=== PATIENT | female | born 1970 | race Caucasian/White ===

== ENCOUNTER 2018-01-04 14:35 | Emergency (ER) | payer OTHER, SELFPAY ==
[2018-01-04] MEDS ORDERED: Dexamethasone 4 mg/ml Vial ONE (16:21)
[2018-01-04] MEDS ORDERED: Ketorolac Tromethamine 30 MG/ML VIAL ONE (16:21)
== END 2018-01-04 14:37 | disposition home or self-care (01) ==
LOC: ERS 14:35
DX: L55.0 Sunburn of first degree (principal)
CPT/HCPCS: 96372; J1100; J1885

== ENCOUNTER 2018-07-13 00:38 | Emergency (ER) | payer BC, SELFPAY ==
--- NOTE | 2018-07-13 08:33 | RAD ---
LEFT LEG 2 VIEWS: Date: 07/13/18 INDICATION: Injury, pain. FINDINGS: No fracture or dislocation. IMPRESSION: No acute osseous abnormality of the left leg. POS: [facility]
--- NOTE | 2018-07-13 08:58 | RAD ---
FOUR VIEWS LEFT KNEE: Date: 07-13-18 History: Fall from standing. Left knee injury after fall. FINDINGS: There is no evidence of a fracture, dislocation, or other osseous abnormality. No joint space narrowi ng is seen. IMPRESSION: No acute osseous abnormality. POS: [facility]
== END 2018-07-13 02:46 | disposition home or self-care (01) ==
LOC: SCSER 00:38
DX: S83.92XA Sprain of unspecified site of left knee, initial encounter (principal); X50.1XXA Overexertion from prolonged static or awkward postures, initial encounter

== ENCOUNTER 2019-02-24 09:43 | Outpatient (CLI) | payer OTHER ==
--- NOTE | 2019-02-24 10:20 | MMO ---
Bilateral MAMMO Bilat Screen [facility]. CLINICAL HISTORY: Patient is 48 years old and is seen for screening. The patient has no family history of breast cancer. The patient has no personal history of cancer. VIEWS: The views performed were: bilateral craniocaudal with tomosynthesis and bilateral mediolateral oblique with tomosynthesis. MAMMOGRAM FINDINGS: There are scattered fibroglandular densities. There are no suspicious masses, suspicious calcifications, or new areas of architectural distortion. IMPRESSION: THERE IS NO MAMMOGRAPHIC EVIDENCE OF MALIGNANCY. A ROUTINE FOLLOW-UP MAMMOGRAM IN 1 YEAR IS RECOMMENDED. THE RESULTS OF THIS EXAM WERE SENT TO THE PATIENT. ACR BI-RADS Category 1 - Negative MAMMOGRAPHY NOTE: 1. A negative mammogram report should not delay a biopsy if a dominant of clinically suspicious mass is present. 2. Approximately 10% to 15% of breast cancers are not detected by mammography. 3. Adenosis and dense breasts may obscure an underlying neoplasm.
== END 2019-02-24 09:44 | disposition home or self-care (01) ==
LOC: BICMAMMO 09:43
PROVIDERS: ATTEND Family Medicine
DX: Z12.31 Encounter for screening mammogram for malignant neoplasm of breast (principal)
CPT/HCPCS: 77063; 77067

== ENCOUNTER 2019-08-06 16:30 | Observation (INO) | payer OTHER ==
--- NOTE | 2019-08-06 17:59 | RAD ---
RIGHT ANKLE TWO VIEWS: 08/06/19 HISTORY: Tripped and fell. Ankle pain. There is an obliquely oriented medial malleolar fracture. Also a posterior malleolar fracture. The ti inez is medially subluxed in position. I do not visualize the fibular fracture. There may be a more pr oximal fibular fracture present. Calcaneal spurs are incidentally noted. IMPRESSION: Obliquely oriented medial malleolar fracture also with a posterior malleolar fracture and medial subl uxation of the tibia in relation to the talus. POS: [facility]
[2019-08-06] MEDS ORDERED: Lidocaine 1% w/Epinephrine 1:100K 20 ML VIAL ONE (18:15)
[2019-08-06] MEDS ORDERED: HYDROmorphone 0.5 MG/0.5 ML SYRINGE ONE (18:20)
[2019-08-06] MEDS ORDERED: Ketorolac Tromethamine 30 MG/ML VIAL ONE (18:58)
--- NOTE | 2019-08-06 19:06 | RAD ---
PORTABLE CHEST: 08/06/19 HISTORY: Fall, preop. Heart size and mediastinum are within normal limits. The lungs are clear of infiltrates. No bony find ings. IMPRESSION: No active intrathoracic disease. POS: [facility]
--- NOTE | 2019-08-06 19:07 | RAD ---
LEFT ANKLE THREE VIEWS: 08/06/19 HISTORY: Ankle pain, status post fall. There are calcaneal spurs present. There is what appears to be an incomplete fracture through the tip of the medial malleolus. Lucency does not extend entirely through the bone but is still suspicious f or a fracture. Clinical correlation as to whether this is the area of patient's pain. IMPRESSION: Findings suggesting a nondisplaced fracture involving the tip of the medial malleolus. POS: [facility]
--- NOTE | 2019-08-06 19:08 | RAD ---
RIGHT ANKLE TWO VIEWS: 08/06/19 HISTORY: Post reduction. Plaster splint is now in place. The alignment of the tibia and talus has been improved since that pre vious exam. Medial malleolar fracture and posterior malleolar fracture is again noted. IMPRESSION: Partial reduction of tibial subluxation. POS: [facility]
[2019-08-06 19:24] LABS: #Lymphocytes 1.3 thou/uL (1.20-3.40); #Monocytes 0.6 thou/uL (0.11-0.59); #Neutrophils 10.1 thou/uL (1.40-6.50); %Basophils 0.3 % (0.0-1.0); %Eosinophils 0.3 % (0.0-10.0); %Neutrophils 83.5 % (42.0-75.0); Mean Corpuscular HGB CONC 32.7 g/dL (32.0-36.0); Mean Corpuscular Volume 88.9 fL (78.0-98.0); Mean Platelet Volume 6.7 fL (7.4-10.4); Platelet Count 324 thou/uL (130-400); RBC Distribution Width 12.1 % (11.5-14.5); Red Blood Cell (RBC) Count 4.48 mill/uL (4.20-5.40); White Blood Cell (WBC) Count 12.1 thou/uL (4.8-10.8)
[2019-08-06 19:47] LABS: ALT (SGPT) 17 U/L (8-55); AST (SGOT) 15 U/L (5-34); Albumin 3.8 g/dL (3.5-5.0); Alkaline Phosphatase 60 U/L (40-110); Anion Gap 12 mmol/L (10-20); BUN (Urea Nitrogen) 9 mg/dL (7.0-18.7); Bilirubin, Total 0.4 mg/dL (0.2-1.2); Calc. Creatinine Clearance 0 mL/min (70-130); Calcium 8.7 mg/dL (7.8-10.44); Carbon Dioxide 23 mmol/L (22-29); Chloride 107 mmol/L (98-107); Estimated GFR-MDRD 66; Globulin 2.6 g/dL (2.4-3.5); Glucose 121 mg/dL (70-105); Potassium 3.9 mmol/L (3.5-5.1); Protein, Total 6.4 g/dL (6.0-8.3); Sodium 138 mmol/L (136-145)
--- NOTE | 2019-08-06 19:50 | HP ---
REQUESTING PHYSICIAN: Dr. Huddleston. ATTENDING SURGEON: Dr. Moralez. CONSULTATIONS: Orthopedics, Dr. Taylor. HISTORY OF PRESENT ILLNESS: The patient is a 49-year-old woman, who was walking down some stairs when she missed the last one and lost her balance and fell, rolling both ankles, mostly her right one. She was unable to bear weight, so 911 was called and EMS brought her to the emergency department, where she underwent evaluation and examination, and was noted to have a right distal tibia fracture/ankle fracture and a high-grade sprain to her left ankle. The patient denied loss of consciousness or any syncopal type events. ALLERGIES: SULFA. CURRENT MEDICATIONS: None. PAST MEDICAL HISTORY: None. PAST SURGICAL HISTORY: Skin graft and tubal ligation. SOCIAL HISTORY: The patient lives at home with her family. She drinks rarely. Denies tobacco or drug use. She is employed as an parking regulation enforcement officer. REVIEW OF SYSTEMS: A 10-point review of systems is negative, except as otherwise stated. PHYSICAL EXAMINATION: VITAL SIGNS: Blood pressure 122/81, respirations 19, oxygen saturation 98% on room air, heart rate is 81, temperature is 98.1. GENERAL: The patient is resting comfortably in bed. She is awake, alert, and oriented x3. Cesia Coma Scale is 15. HEENT. Head is normocephalic and atraumatic. Eyes, extraocular motion intact. PERRLA bilaterally. Ears are atraumatic without discharge. Nose is atraumatic without discharge. Oropharynx is clear. NECK: Nontender. Trachea is midline. No JVD. CHEST: Clear to auscultation with good inspiratory and expiratory effort. HEART: Regular rate and rhythm. ABDOMEN: Soft, flat, nontender with active bowel sounds. PELVIS: Stable. EXTREMITIES: Neurovascularly intact x4. Right lower extremity, the ankle has global swelling and ecchymosis and is neurovascularly intact. The left lower extremity has tenderness to palpation to the medial and lateral aspect of her ankle. There is minimal swelling and no ecchymosis noted and is neurovascularly intact. BACK: By report is atraumatic and nontender. LABORATORY FINDINGS: Pending. RADIOGRAPHIC REPORTS: AP chest x-ray shows no intrathoracic disease. Views of the right ankle show an obliquely oriented medial malleolar fracture, also a posterior malleolar fracture, and medial subluxation of the tibia in relation to the talus. Views of the left ankle, findings suggesting a nondisplaced fracture involving the tip of the medial malleolus. ASSESSMENT/PLAN: 1. Status post ground level fall. 2. Right medial and posterior malleolus fracture with subluxation. 3. Left nondisplaced fracture of the tip of the medial malleolus. 4. Pain secondary to trauma. PLAN: Plan will be to admit the patient to the surgical floor. She will be made n.p.o. after midnight. She will have pain control, pulmonary toilet, gastritis and mechanical VTE prophylaxis. Postoperatively, she will work with physical therapist and occupational therapist and may possibly be able to leave postoperatively once her pain is controlled and she is work with therapy. We will also get a left leg film tonight to ensure that the patient does not have maisonneuve fracture. The case was discussed with Dr. Taylor and he plans to take the patient to the OR tomorrow. The evaluation and examination were discussed with Dr. Moralez prior to this dictation. Job ID: [id number]
--- NOTE | 2019-08-06 19:56 | RAD ---
LEFT TIBIA AND FIBULA TWO VIEWS: 08/06/19 HISTORY: Tib/fib injury. There is subtle lucency again demonstrated to the tip of the medial malleolus, possibly a subtle frac ture. No other abnormalities are noted. IMPRESSION: Subtle area of lucency involving the tip of the medial malleolus, possibly a nondisplaced fracture. C linical correlation is suggested. POS: [facility]
--- NOTE | 2019-08-06 20:46 | CON ---
DATE OF CONSULTATION: CHIEF COMPLAINT: Bilateral ankle pain. HISTORY OF PRESENT ILLNESS: Ms. Benitez is a 49-year-old female, who was walking downstairs when she missed a step and fell. She twisted her ankles. She had a deformity of her right ankle and was unable to bear weight. She was brought to the emergency department. She has been found to have a right bimalleolar ankle fracture with near dislocation. This has been reduced and splinted. She has also been found to have minimally displaced left medial malleolus ankle fracture. Orthopedics was consulted for these injuries. She is being admitted to the General Surgery Trauma Service. ALLERGIES: TO SULFA. PAST MEDICAL HISTORY: She denies active medical problems. PAST SURGICAL HISTORY: Tubal ligation and previous skin graft surgery. SOCIAL HISTORY: The patient denies tobacco, alcohol, or drug use. She lives independently. REVIEW OF SYSTEMS: Negative for 10-point review of systems except for ankle pain as per HPI. IMAGING DATA: X-rays of the right ankle demonstrate a bimalleolar ankle fracture with widening of the syndesmosis and significant widening of the ankle mortise. Postreduction x-ray shows improved alignment. Left ankle x-ray shows a minimally displaced avulsion from the medial malleolus. PHYSICAL EXAMINATION: VITAL SIGNS: Stable. The patient is afebrile. GENERAL: She is alert and oriented, in no apparent distress. HEENT: Normocephalic, atraumatic. RESPIRATORY: Breathing comfortably. ABDOMEN: Soft, nontender, nondistended. MUSCULOSKELETAL: The patient's right lower extremity is splinted in a well-padded splint. She is able to flex and extend the toes. She has 2 second capillary refill. She has a palpable pulse on the left lower extremity. She is tender along the medial malleolus on the left leg with minor swelling. Upper extremities are atraumatic. IMPRESSION: Bilateral ankle injury with unstable right ankle fracture and a minimally displaced medial malleolar avulsion injury. PLAN: The patient will be admitted to the hospital for pain control and to prepare for surgical intervention. I will plan for open reduction and internal fixation of the right ankle to be done tomorrow morning. The left ankle can be treated in a walking boot. This will be ordered as well. She is aware of risks and benefits. She wished to proceed. She will have antibiotics as well as DVT prophylaxis as needed. Job ID: [id number]
[2019-08-06] MEDS ORDERED: Cyclobenzaprine 10 MG TAB PO PRN (22:15)
[2019-08-06] MEDS ORDERED: Dextrose 50% Abboject 50 ML SYRINGE SLOW IVP PRN (22:15)
[2019-08-06] MEDS ORDERED: hydrALAZINE 20 MG/ML VIAL SLOW IVP PRN (22:15)
[2019-08-06] MEDS ORDERED: Ketorolac Tromethamine 30 MG/ML VIAL IVP SCH (22:15)
[2019-08-06] MEDS ORDERED: traMADol HCl 50 MG TAB PO PRN (22:15)
[2019-08-06] MEDS ORDERED: Ondansetron ODT 4 MG TAB PO PRN (22:15)
[2019-08-06] MEDS ORDERED: Morphine 2 MG/ML SYRINGE SLOW IVP PRN (22:15)
[2019-08-06] MEDS ORDERED: Morphine 4 MG/ML VIAL SLOW IVP PRN (22:15)
[2019-08-06] MEDS ORDERED: Dextrose 5% in Water 1,000 ML IV PRN (22:15)
[2019-08-06] MEDS ORDERED: Ondansetron PF 4 MG/2 ML Vial IVP PRN (22:15)
[2019-08-06] MEDS ORDERED: Famotidine 20 MG TAB PO SCH (22:30)
[2019-08-06] MEDS: Sodium Chloride 0.9% 1,000 ML IV SCH (23:03)
[2019-08-06] MEDS: Acetaminophen 1,000 MG in Premix Bag 1 BAG IVPB SCH (23:08)
[2019-08-06 23:29] VITALS: BMI 42.1
[2019-08-07] MEDS: Ketorolac Tromethamine 30 MG/ML VIAL IVP SCH ×4 (05:29→23:43)
[2019-08-07] MEDS: Acetaminophen 1,000 MG in Premix Bag 1 BAG IVPB SCH ×3 (05:30→18:09)
[2019-08-07] MEDS: Sodium Chloride 0.9% 1,000 ML IV SCH (05:36)
[2019-08-07 07:12] LABS: #Eosinphils 0.1 thou/uL (0.0-0.7); #Lymphocytes 1.9 thou/uL (1.20-3.40); #Monocytes 0.6 thou/uL (0.11-0.59); #Neutrophils 4.2 thou/uL (1.40-6.50); %Basophils 0.5 % (0.0-1.0); %Eosinophils 1.3 % (0.0-10.0); %Lymphocytes 28.5 % (21.0-51.0); %Monocytes 8.6 % (0.0-10.0); %Neutrophils 61.2 % (42.0-75.0); Hemoglobin 11.7 g/dL (12.0-16.0); Mean Corpuscular HGB CONC 32.4 g/dL (32.0-36.0); Mean Corpuscular Hemoglobin 28.9 pg (27.0-31.0); Mean Corpuscular Volume 89.2 fL (78.0-98.0); Mean Platelet Volume 6.8 fL (7.4-10.4); Platelet Count 265 thou/uL (130-400); RBC Distribution Width 12.1 % (11.5-14.5); Red Blood Cell (RBC) Count 4.06 mill/uL (4.20-5.40); White Blood Cell (WBC) Count 6.8 thou/uL (4.8-10.8)
[2019-08-07 07:26] LABS: Anion Gap 10 mmol/L (10-20); BUN (Urea Nitrogen) 10 mg/dL (7.0-18.7); Calc. Creatinine Clearance 174 mL/min (70-130); Calcium 8.3 mg/dL (7.8-10.44); Carbon Dioxide 23 mmol/L (22-29); Chloride 111 mmol/L (98-107); Estimated GFR-MDRD 84; Glucose 107 mg/dL (70-105); Potassium 3.9 mmol/L (3.5-5.1); Sodium 140 mmol/L (136-145)
[2019-08-07] MEDS: Famotidine 20 MG TAB PO SCH ×2 (08:00→21:33)
[2019-08-07] MEDS ORDERED: CEFAZOLIN 2 GM in Premix Bag 1 BAG IVPB SCH (09:00)
--- NOTE | 2019-08-07 11:06 | PRG ---
DATE OF SERVICE: 08/07/2019 SUBJECTIVE: A 49-year-old female, hospital day #1, status post ground level fall sustaining a right bimalleolar fracture and a left medial malleolar fracture. Plan to go to the OR today with Orthopedics. Discussed with the team. Patient has not had any trouble with anesthesia in the past. Pain is well controlled. No other injury. PHYSICAL EXAMINATION: VITAL SIGNS: Temperature is 98, blood pressure 132/85, heart rate is 67, breathing 16 times a minute, saturating 98% on room air. GENERAL: This is a 49-year-old obese female sitting up in bed, no acute distress. HEENT: Normocephalic, atraumatic. Trachea is midline. NECK: No JVD is appreciated. RESPIRATORY: Equal rise and fall, bilateral breath sounds. CARDIOVASCULAR: Regular rate and rhythm. ABDOMEN: Large, obese. MUSCULOSKELETAL: She has positive CMS of both lower extremities. She has a brace about the right lower extremity. SKIN: [place], warm, and dry. NEUROLOGIC: Alert and orient to person, place, time and event. PSYCHIATRIC: Normal mood and affect. DIAGNOSTIC CRITERIA: Laboratory: White blood cell count is 6.8, platelets are 265, hemoglobin and hematocrit is 11.7 and 36.2 respectively. Sodium is 140, potassium 3.8, chloride is 111, CO2 is 23, anion gap is 10, creatinine 0.74, BUN of 10, glucose is 107. ASSESSMENT: 1. Right bimalleolar ankle fracture. 2. Left medial malleolar ankle fracture. 3. Acute traumatic pain. 4. Obesity. PLAN: 1. To the OR today with Orthopedics for the right ankle. Will boot the left ankle. 2. PT eval after surgery. 3. Continue pain control. 4. We will get PT evaluation and patient would like to go home with her mother who has a flat house. They live in [place]. Therefore, we will likely keep the patient overnight tonight to be able to work with PT, confirm that the patient has been able to walk and ambulate and assist herself with some daily duties and then hope to discharge in the morning if there is no change in condition. We can start a diet after surgery. We will continue all other supportive care including prophylaxis with Pepcid and start chemical DVT prophylaxis postoperatively. 5. I have updated the patient and patient's family at the bedside. I have coordinated care with the bedside RN, the orthopedics team. Job ID: [id number]
[2019-08-07] MEDS ORDERED: Midazolam HCl 2 mg/2 ml Vial ONE (11:30)
[2019-08-07] MEDS ORDERED: Fentanyl 100 MCG/2 ML VIAL ONE ×3 (11:31→13:19)
[2019-08-07] MEDS ORDERED: Bupivacaine HCl 0.5%/Epinephrine 1:200,000/PF 30 ml Vial ONE (12:14)
[2019-08-07] MEDS ORDERED: Morphine Sulfate 2 MG/ML SYRINGE SLOW IVP PRN (12:16)
[2019-08-07] MEDS ORDERED: Promethazine HCl 25 MG/ML VIAL SLOW IVP PRN (12:16)
[2019-08-07] MEDS ORDERED: Ondansetron HCl/PF 4 MG/2 ML Vial IVP PRN (12:16)
[2019-08-07] MEDS ORDERED: Promethazine HCl 25 MG/ML VIAL IM PRN (12:16)
[2019-08-07] MEDS ORDERED: HYDROmorphone 2 MG/ML VIAL SLOW IVP PRN (12:16)
[2019-08-07] MEDS ORDERED: PACU-Morphine 4MG/ML VIAL SLOW IVP PRN (12:16)
[2019-08-07] MEDS ORDERED: PROPOFOL 200 MG/20 ML VIAL ONE (12:30)
[2019-08-07] MEDS ORDERED: Ketorolac Tromethamine 30 MG/ML VIAL ONE (12:30)
[2019-08-07] MEDS ORDERED: Dexamethasone 20 MG/5 ML VIAL ONE (12:30)
[2019-08-07] MEDS ORDERED: Ondansetron PF 4 MG/2 ML Vial ONE (12:30)
[2019-08-07] MEDS ORDERED: Lidocaine 1% PF 5 ML VIAL ONE (12:30)
[2019-08-07] MEDS ORDERED: Promethazine HCl 25 MG/ML VIAL ONE (13:15)
--- NOTE | 2019-08-07 13:24 | OP ---
DATE OF PROCEDURE: 08/07/2019 PROCEDURES PERFORMED: Right ankle fracture open reduction and internal fixation with syndesmosis fixation. PREOPERATIVE DIAGNOSES: Unstable right ankle fracture with syndesmosis disruption and medial malleolus fracture. POSTOPERATIVE DIAGNOSES: Unstable right ankle fracture with syndesmosis disruption and medial malleolus fracture. COMPLICATIONS: None. ESTIMATED BLOOD LOSS: Minimal. AMPOULE SEALER: Joshua Gallegos PA-C IMPLANT: Synthes 4.0 mm screws were utilized. INDICATIONS: Ms. Benitez is a 49-year-old female, who fell. She fractured her right ankle. She had an unstable ankle fracture and was indicated for open reduction and internal fixation to restore anatomic alignment and promote healing. Risks have been reviewed in detail. She has elected to proceed with the operation. Risks to include posttraumatic arthritis, infection, wound complications, need for hardware removal, DVT, PE, and others. DESCRIPTION OF PROCEDURE: Ms. Benitez was identified in the preoperative holding area. Her correct extremity was marked. She was carried to the operating room. She was positioned supine. General anesthesia was induced. A multidisciplinary time-out was performed. The right lower extremity was prepped and draped in sterile fashion. We began the procedure with an approach to the medial malleolus. We dissected down through the subcutaneous tissues to the medial malleolar fracture. The saphenous vein was protected. We thoroughly irrigated with copious lavage. We then removed hematoma and cleared the bony edges. At this point, we reduced the fracture with a reduction clamp. We took x-ray images confirming reduction. We then placed a K-wire holding our reduction. Next, we placed two partially-threaded 4.0 mm screws across the fracture through the medial malleolus. This stabilized the fracture well. At this point, we performed a stress view x-ray, which was positive for opening of the syndesmosis and medial malleolus. We decided to proceed with fixation. We made two small incisions over the fibula. We dissected down to the bony level. We placed a reduction clamp across the syndesmosis. At this point, we placed two screws through the fibula into the tibia, stabilizing her syndesmosis. We repeated the reduction x-ray and stress view, which were negative at this point. We thoroughly irrigated all wounds. We then closed appropriately in layers. A sterile dressing was applied. The patient was taken to the recovery room in good condition. Job ID: [id number]
[2019-08-07] MEDS: CEFAZOLIN 2 GM in Premix Bag 1 BAG IVPB SCH (18:09)
[2019-08-07] MEDS ORDERED: FLU VACC QS2019-20(6MOS UP)/PF 60 MCG/0.5 ML SYRINGE IM ONE (21:00)
--- NOTE | 2019-08-07 21:06 | RAD ---
RIGHT ANKLE THREE VIEWS: HISTORY: ORIF. COMPARISON: None. FINDINGS: Satisfactory appearance of the medial malleolar screw as well as the syndesmotic screws. The posterio r malleolar fracture is similar. IMPRESSION: Satisfactory postoperative appearance. POS: [facility]
--- NOTE | 2019-08-07 23:15 | PRG ---
DATE OF SERVICE: 08/07/19 Seen on evening rounds. SUBJECTIVE: Ms. Benitez is a 49-year-old female, mechanical fall, right bimalleolar and left medial malleolar fractures, status post ORIF of the right; tolerated well, doing good, seen with PT and was able to pivot, plans to go home with her family tomorrow. She needs one more session of PT per them. Cleared with Orthopedics. Pain is controlled. Tolerating diet. No acute distress. The patient will need a wheelchair and walker for home. OBJECTIVE: VITAL SIGNS: Blood pressure is 117/72, temperature is 98.2, saturating 98% on room air, heart rate is 77, and breathing 16 times per minute. GENERAL: No acute distress. Pain is controlled. ASSESSMENT: 1. Status post ORIF of the right bimalleolar fracture. 2. Status post boot placement left fracture. 3. Obesity. PLAN: 1. Continue working with PT. 2. Continue pain control. 3. Can start DVT prophylaxis tomorrow as needed. 4. Discharge planning is in process. Likely go home with home outpatient PT and follow up in two weeks with Orthopedics. Job ID: [id number] [facility]
[2019-08-08] MEDS: CEFAZOLIN 2 GM in Premix Bag 1 BAG IVPB SCH (02:25)
[2019-08-08] MEDS: Famotidine 20 MG TAB PO SCH (07:50)
[2019-08-08] MEDS: traMADol HCl 50 MG TAB PO PRN ×2 (07:51→14:43)
[2019-08-08] MEDS ORDERED: Enoxaparin Sodium 40 MG/0.4 ML SYRINGE SC SCH (09:00)
--- NOTE | 2019-08-08 11:01 | PRG ---
DATE OF SERVICE: 08/08/2019 Please see Trae Arauz's note for full details. Ms. Benitez had a wheelchair and walker training this morning. She is able to be up and to the restroom. Plans for her to be discharged home later on today. We will arrange for outpatient orthopedic followup. Job ID: [id number]
[2019-08-08 11:50] VITALS: BP 117/78; TEMP 97.5
[2019-08-08] MEDS ORDERED: Ibuprofen 600 MG TAB PO PRN (13:05)
--- NOTE | 2019-08-08 22:29 | DIS ---
DATE OF ADMISSION: 08/06/2019 DATE OF DISCHARGE: 08/08/2019 This is Trae Arauz PA-C dictating a report for Carlos Maya MD. DISCHARGING PHYSICIAN: Carlos Maya MD. CONSULTING PHYSICIAN: Dr. Taylor with Orthopedics. PROCEDURES PERFORMED: 1. ORIF of the right bimalleolar fracture. 2. Splinting of the left medial malleolar fracture. HOSPITAL COURSE: This is a 49-year-old obese female, admitted to the surgery cutler after she had a mechanical fall causing fractures noted above. She was placed on the surgery cutler. She went to the OR on hospital day #1, tolerated the procedure well. She has worked with PT. She is able to transfer. She has a boot walker about the left foot and a splint to the right. She is able to use a wheelchair to complete most of her ADLs. Orthopedics has cleared her for discharge. The patient's pain is well controlled. She is hemodynamically stable. She is tolerating a diet. She is going to go home with her family in [place] and follow up with Orthopedics in two weeks. DISCHARGE MEDICATIONS: 1. Tramadol. 2. Gabapentin. 3. Ibuprofen. 4. Aspirin. 5. Continue her home medications per usual. PHYSICAL EXAMINATION: VITAL SIGNS: Today, temperature is 98.6, blood pressure 123/82, heart rate is 68, breathing 16 times per minute, saturating 97% on room air. GENERAL: This is a 49-year-old female, sitting up in no acute distress. HEENT: Normocephalic, atraumatic. RESPIRATORY: Equal rise and fall. No respiratory distress. CARDIOVASCULAR: Regular rate and rhythm. EXTREMITIES: Splints noted about the lower extremity. She has positive CMS in all extremities. She has been able to mobilize herself in a wheelchair and pivot. NEUROLOGIC: Alert and oriented to person, place, time, and event. PSYCH: Normal mood and affect. DISCHARGE DISPOSITION: Home with family. FOLLOWUP: Follow up with Dr. Taylor with Orthopedics in two weeks. Return precautions were given. Prescriptions were given. Greater than 30 minutes taken for discharge planning. Job ID: [id number]
== END 2019-08-08 15:10 | disposition home or self-care (01) ==
LOC: ERS 16:30 → SJJU 20:25
PROVIDERS: ADMIT Specialist; ATTEND Specialist
PROC: 0QSG04Z Reposition Right Tibia with Internal Fixation Device, Open Approach (ICD-10-PCS; principal; 2019-08-08)
DX: S82.841A Displaced bimalleolar fracture of right lower leg, initial encounter for closed fracture (principal); S82.52XA Displaced fracture of medial malleolus of left tibia, initial encounter for closed fracture; S93.431A Sprain of tibiofibular ligament of right ankle, initial encounter; G89.11 Acute pain due to trauma; E66.9 Obesity, unspecified; Z68.41 Body mass index [BMI] 40.0-44.9, adult; Z88.2 Allergy status to sulfonamides; W10.8XXA Fall (on) (from) other stairs and steps, initial encounter
CPT/HCPCS: 27810; 36415; 71045; 76000; 80048; 80053; 85025; 90471; 90686; 93005; 96361; 96372; 96374; 96375; 96376; C1713; G0008; G0378; G0390; J0131; J0670; J0690; J1100; J1170; J1650; J1885; J2001; J2250; J2405; J2550; J2704; J3010

== ENCOUNTER 2021-07-01 13:35 | Outpatient (CLI) | payer OTHER | END 2021-07-01 13:36 | disposition home or self-care (01) | LOC: BICMAMMO 13:35 | PROVIDERS: ATTEND Internal Medicine | DX: Z12.31 Encounter for screening mammogram for malignant neoplasm of breast (principal) | CPT/HCPCS: 77063; 77067 ==

== ENCOUNTER 2022-02-11 14:28 | Outpatient (CLI) | payer BC | END 2022-02-11 14:29 | disposition home or self-care (01) | LOC: BICRAD 14:28 | PROVIDERS: ATTEND Internal Medicine | DX: M25.561 Pain in right knee (principal); M25.461 Effusion, right knee ==

== ENCOUNTER 2022-02-27 14:02 | Outpatient (CLI) | payer BC | END 2022-02-27 14:03 | disposition home or self-care (01) | LOC: MRI 14:02 | PROVIDERS: ATTEND Internal Medicine | DX: M25.561 Pain in right knee (principal) ==

== ENCOUNTER 2022-06-20 08:56 | Outpatient (CLI) | payer BC ==
[2022-06-20 10:43] LABS: #Eosinphils 0.1 10x3/uL (0.0-0.5); #Monocytes 0.4 10x3/uL (0.0-1.1); #Neutrophils 3.2 10x3/uL (1.5-8.4); %Basophils 0.5 % (0.0-2.0); %Eosinophils 2.5 % (0.0-6.0); %Lymphocytes 31.5 % (18.0-47.0); %Monocytes 6.7 % (0.0-10.0); %Neutrophils 58.6 % (40.0-75.0); Hemoglobin 12.4 g/dL (12.0-15.5); Mean Corpuscular HGB CONC 32.7 g/dL (32.0-36.0); Mean Corpuscular Hemoglobin 28.8 pg (27.0-33.0); Mean Corpuscular Volume 88.1 fl (81.6-98.3); Mean Platelet Volume 9.5 fl (7.4-10.4); Platelet Count 323 10x3/uL (150-450); RBC Distribution Width 12.3 % (11.5-14.5); White Blood Cell (WBC) Count 5.5 10x3/uL (3.5-10.5)
[2022-06-20 10:51] LABS: Prothrombin Time 10.9 sec (9.5-12.1)
[2022-06-20 10:53] LABS: Anion Gap 12 mmol/L (10-20); BUN (Urea Nitrogen) 17 mg/dL (7.0-18.7); Calc. Creatinine Clearance 0 mL/min (70-130); Calcium 8.8 mg/dL (7.8-10.44); Carbon Dioxide 24 mmol/L (22-29); Chloride 109 mmol/L (98-107); Estimated GFR 97; Glucose 98 mg/dL (70-105); Potassium 3.9 mmol/L (3.5-5.1); Sodium 141 mmol/L (136-145)
== END 2022-06-20 08:57 | disposition home or self-care (01) ==
LOC: LABBT 08:56
PROVIDERS: ATTEND Orthopaedic Surgery
DX: Z01.818 Encounter for other preprocedural examination (principal); S83.281A Other tear of lateral meniscus, current injury, right knee, initial encounter; M22.41 Chondromalacia patellae, right knee; Z20.822 Contact with and (suspected) exposure to COVID-19
CPT/HCPCS: 80048; 85025; 85610; 87811; 93005; 93010

== ENCOUNTER 2022-06-25 06:55 | Day surgery (SDC) | payer BC ==
[2022-06-24 12:54] VITALS: BMI 41.3
[2022-06-25] MEDS ORDERED: EPINEPHrine 1 MG/ML AMP ONE (08:14)
[2022-06-25] MEDS ORDERED: Lidocaine 2% PF 5 ML VIAL ONE (08:14)
[2022-06-25] MEDS ORDERED: PROPOFOL 20 ML ONE (09:03)
[2022-06-25] MEDS ORDERED: fentaNYL Citrate/PF 100 MCG/2 ML SYRINGE ONE (09:22)
[2022-06-25] MEDS ORDERED: Bupivacaine HCl 0.5%/Epinephrine 1:200,000/PF 30 ml Vial ONE ×2 (09:35→10:00)
[2022-06-25] MEDS ORDERED: Sodium Chloride 0.9% 100 ML ONE (09:40)
[2022-06-25] MEDS ORDERED: CEFAZOLIN 2 GM VIAL ONE (09:40)
[2022-06-25] MEDS ORDERED: Ondansetron PF 4 MG/2 ML Vial ONE (10:00)
[2022-06-25] MEDS ORDERED: PROPOFOL 200 MG/20 ML VIAL ONE (10:00)
[2022-06-25] MEDS ORDERED: Lidocaine 2% 20 ml MDV ONE (10:00)
[2022-06-25] MEDS ORDERED: Lidocaine 1% MPF 2 ML VIAL ONE (10:00)
[2022-06-25] MEDS ORDERED: Ketorolac Tromethamine 30 MG/ML VIAL ONE (10:00)
[2022-06-25] MEDS ORDERED: Dexamethasone 20 MG/5 ML VIAL ONE (10:00)
[2022-06-25] MEDS ORDERED: Fentanyl 100 MCG/2 ML VIAL ONE (11:12)
[2022-06-25] MEDS ORDERED: HYDROcodone/Acetaminophen 5/325 mg Tablet ONE (14:03)
[2022-06-25] MEDS ORDERED: Ondansetron ODT 4 MG TAB ONE (14:59)
== END 2022-06-25 15:00 | disposition home or self-care (01) ==
LOC: SDC 06:55
PROVIDERS: ATTEND Orthopaedic Surgery
PROC: 0SBC4ZZ Excision of Right Knee Joint, Percutaneous Endoscopic Approach (ICD-10-PCS; principal; 2022-06-25)
DX: M23.341 Other meniscus derangements, anterior horn of lateral meniscus, right knee (principal); M22.41 Chondromalacia patellae, right knee; M65.861 Other synovitis and tenosynovitis, right lower leg; S83.411A Sprain of medial collateral ligament of right knee, initial encounter; S83.421A Sprain of lateral collateral ligament of right knee, initial encounter; K21.9 Gastro-esophageal reflux disease without esophagitis; E66.01 Morbid (severe) obesity due to excess calories; Z68.41 Body mass index [BMI] 40.0-44.9, adult; Z79.899 Other long term (current) drug therapy; Z88.2 Allergy status to sulfonamides; X58.XXXA Exposure to other specified factors, initial encounter
CPT/HCPCS: J0171; J0690; J1100; J1885; J2001; J2405; J2704; J3010; J3490; Q0162

== ENCOUNTER 2024-07-01 20:59 | Emergency (ER) | payer BC ==
[2024-07-01] MEDS ORDERED: Acetaminophen 500 MG TAB ONE (22:50)
[2024-07-01] MEDS ORDERED: Ketorolac Tromethamine 30 MG (1 mL) VIAL ONE (22:51)
[2024-07-01] MEDS ORDERED: Metoclopramide HCl 10 MG (2 mL) VIAL ONE (22:51)
[2024-07-01] MEDS ORDERED: diphenhydrAMINE 50 MG/ML VIAL ONE (22:51)
[2024-07-01 23:38] LABS: #Basophils 0.04 10x3/uL (0.0-0.2); %Basophils 0.5 % (0.0-1.0); %Eosinophils 2.3 % (0.0-10.0); %Lymphocytes 44.2 % (21.0-51.0); %Neutrophils 43.6 % (42.0-75.0); Hematocrit 44.6 % (36.0-47.0); Hemoglobin 14.8 g/dL (12.0-16.0); Mean Corpuscular HGB CONC 33.2 g/dL (32.0-36.0); Mean Corpuscular Hemoglobin 29.7 pg (27.0-31.0); Mean Corpuscular Volume 89.4 fL (78.0-98.0); Mean Platelet Volume 9.4 fL (7.4-10.4); Platelet Count 302 10x3/uL (130-400); RBC Distribution Width 12.9 % (11.5-14.5); Red Blood Cell (RBC) Count 4.99 mill/uL (4.20-5.40)
[2024-07-01 23:52] LABS: BHCG - Serum Negative (NEGATIVE); Pregs Control Background? CLEAR/WHITE (CLR/WHITE); Pregs Control Bar Appear? YES (CONTROL BAR)
[2024-07-02 00:01] LABS: ALT (SGPT) 17 U/L (8-55); AST (SGOT) 11 U/L (5-34); Albumin 3.2 g/dL (3.5-5.0); Alkaline Phosphatase 54 U/L (40-110); Anion Gap 14 mmol/L (10-20); BUN (Urea Nitrogen) 17 mg/dL (9.8-20.1); Bilirubin, Total 0.4 mg/dL (0.2-1.2); Calc. Creatinine Clearance 0 mL/min (70-130); Calcium 8.9 mg/dL (7.8-10.44); Carbon Dioxide 24 mmol/L (22-29); Chloride 110 mmol/L (98-107); Estimated GFR 87; Globulin 2.7 g/dL (2.4-3.5); Glucose 99 mg/dL (70-105); Potassium 3.7 mmol/L (3.5-5.1); Protein, Total 5.9 g/dL (6.0-8.3); Sodium 144 mmol/L (136-145)
[2024-07-02 00:05] LABS: Troponin I Less than 0.010 ng/mL (< 0.028)
== END 2024-07-02 00:52 | disposition home or self-care (01) ==
LOC: ERS 20:59
DX: R51.9 Headache, unspecified (principal); Z55.6 Problems related to health literacy
CPT/HCPCS: 70450; 80053; 84484; 84703; 85025; 93005; 96374; 96375; J1200; J1885; J2765